=== PATIENT | female | born 1995 ===

== ENCOUNTER 2020-05-14 10:56 | Emergency (ER) | payer BC ==
[~2020-05-14] VITALS: Ht 177.8 cm; Wt 72.6 kg
[2020-05-14] MEDS ORDERED: EPIPEN0.3 MG/0.1 IJ (11:05)
[2020-05-14] MEDS ORDERED: EPIPEN 2-P0.3 MG/0.3 IM (11:13)
== END 2020-05-14 12:09 | disposition home or self-care (01) ==
LOC: ER 10:56
DX: R06.02 Shortness of breath (principal); T78.05XA Anaphylactic reaction due to tree nuts and seeds, initial encounter; T78.49XA Other allergy, initial encounter